=== PATIENT | female | born 1990 | race Caucasian/White ===

== ENCOUNTER 2020-09-24 21:57 | Emergency (ER) | payer OTHER ==
[~2020-09-24] VITALS: Ht 154.9 cm; Wt 63.5 kg
[2020-09-25] MEDS ORDERED: INTESTINEX680 M2 PO (02:03)
[2020-09-25] MEDS ORDERED: PEPCID AC20 MG PO (02:03)
[2020-09-25] MEDS ORDERED: AMOX-CLAV 875-1 EACH PO (02:03)
== END 2020-09-25 02:15 | disposition home or self-care (01) ==
LOC: ER 21:57
DX: H66.92 Otitis media, unspecified, left ear (principal); H92.02 Otalgia, left ear